=== PATIENT | male | born 1970 | race Caucasian/White ===

== ENCOUNTER 2018-05-06 22:01 | Emergency (ER) | payer MEDICAID, SELFPAY ==
[2018-05-06 22:02] VITALS: BP 121/80; PULSE 89; RESP 16; TEMP 37.2; O2SAT 97; BMI 20.5
[2018-05-06] MEDS: BACITRACIN 15 GM Tube 1 APPLIC TOPICAL (23:19)
--- NOTE | 2018-05-07 00:07 | ED.VISSUMM ---
- ER Visit Summary Date of Service: 05/07/18 Chief Complaint: Forearm laceration History of Present Illness: The patient is a 48 M presenting for evaluation secondary to forearm laceration. Patient states that he cut his right forearm at about 3 PM today on a screw that was sticking out from a board. Patient states that his tetanus status is unknown. Patient denies any other injuries. Physical Examination: Physical exam unremarkable except for examination of the right forearm. There are some abrasions noted over the upper arm, and a 1 cm full-thickness laceration noted over the forearm just distal to the crease of the elbow. Normal sensation pulses capillary refill distally. Test Results: None indicated Emergency Department Course and Treatment: Patient presented secondary to a laceration. Tetanus status was updated. Wound was anesthetized using 3 cc 1% lidocaine. Wound was copiously irrigated with saline, was explored through full range of motion I did not appreciate any sort of foreign bodies. The wound was then approximated using 4-0 nylon suture. 2 simple interrupted sutures were placed patient tolerated this well. Patient will have the sutures removed in 5-7 days. Disposition: Discharge Impression: 1. 1 cm right forearm laceration 2. Tetanus update 3. Laceration repair This note was generated with [employer] dictation software. It may contain incorrect words, spelling, and punctuation that were not noted in review of the chart prior to signing ED Disposition - Plan for ED Patient: Disposition: Home or Assisted Living Chief Complaint: Laceration Diagnosis: Forearm laceration Instructions: ED Laceration All Referrals: Qasim Walter MD [Primary Care Provider] - 7 Days for suture removal
[2018-05-07] MEDS: Diphth,Pertuss(Acell),Tet Vac 0.5 ML Vial IM (00:17)
[2018-05-07 00:27] VITALS: RESP 16
== END 2018-05-07 00:31 | disposition home or self-care (01) ==
PROVIDERS: Emergency Provider Emergency Medicine; Family Provider Family Medicine; PCP Family Medicine
DX: S51.811A Laceration without foreign body of right forearm, initial encounter (principal); W26.8XXA Contact with other sharp object(s), not elsewhere classified, initial encounter; Y93.9 Activity, unspecified; Y92.9 Unspecified place or not applicable
CPT/HCPCS: 12001; 90471; 90715; 99284

== ENCOUNTER 2018-05-26 21:18 | Emergency (ER) | payer MEDICAID, SELFPAY ==
[2018-05-26 21:19] VITALS: BP 114/88; PULSE 60; RESP 17; TEMP 36.5; O2SAT 100; BMI 18.4
--- NOTE | 2018-05-26 21:52 | ED.DCSUM_ITS ---
- ER Visit Summary Date of Service: 05/26/18 Chief Complaint: Headache, nausea, vomiting History of Present Illness: The patient is a 48 M presenting with headache, nausea, vomiting. Started yesterday. Patient works in the heat. He was concerned about possibility of heat exhaustion. He states he has been in the heat all week. He has had gradual onset headache. He has nausea and vomiting. He was unable to keep fluids down today. He denies other complaints. Physical Examination: Vitals are stable. Patient is afebrile. Alert no acute distress. HEENT exam is unremarkable. Neck is supple. No meningismus Lungs are clear and equal bilaterally. Heart is regular rate and rhythm. Abdomen is soft nontender nondistended. Extremities are unremarkable. Skin is warm and dry. No focal neurologic deficit. Remainder of exam is unremarkable. Emergency Department Course and Treatment: He was given IV fluids, Phenergan. Chemistries show BUN 29. CK 238. Patient is feeling much improved on reevaluation. He is able to tolerate p.o. He is advised to drink plenty of fluids when he is in the heat. Advised to follow-up with primary care physician. Advised return to ED for worsening complaints. Disposition: Discharge home Impression: Heat exhaustion This note was generated with [employer] dictation software. It may contain incorrect words, spelling, and punctuation that were not noted in review of the chart prior to signing ED Disposition - Plan for ED Patient: Chief Complaint: Headache Instructions: ED Exhaustion Heat Prescriptions: Ondansetron [Zofran Odt] 4 mg PO Q8H PRN PRN #10 tablet PRN Reason: Nausea Referrals: Qasim Walter MD [Primary Care Provider] -
[2018-05-26] MEDS: proMETHazine 25 MG/ML Syringe 6.25 MG IV (21:57)
[2018-05-26] MEDS: 0.9% Normal Saline 1,000 ML 1000 ML IV ×2 (21:58→22:45)
[2018-05-26 22:22] LABS: Anion Gap 7 (5-15); BUN 29 mg/dL (7-18); BUN/Creat Ratio 27.9 RATIO (10-20); CPK Total, Creatine Kinase 238 U/L (39-308); Calcium,Total 8.9 mg/dL (8.5-10.1); Chloride 108 mmol/L (98-107); Creatinine, Serum 1.04 mg/dL (0.70-1.30); EST Glomerular Filtration Rate 81 mL/min (>60); Est Glom Filt Rate - Afr Amer 98 mL/min (>60); Estimated Creatinine Clearance 68.31 ml/min; Glucose 101 mg/dL (74-106); Potassium 3.8 mmol/L (3.5-5.1); Sodium Level 144 mmol/L (136-145)
--- NOTE | 2018-05-26 22:54 | ED.DEP ---
ED Disposition - Plan for ED Patient: Chief Complaint: Headache Instructions: ED Exhaustion Heat Prescriptions: Ondansetron [Zofran Odt] 4 mg PO Q8H PRN PRN #10 tablet PRN Reason: Nausea Referrals: Qasim Walter MD [Primary Care Provider] -
[2018-05-26 23:17] VITALS: BP 136/76; PULSE 80; RESP 16; O2SAT 98
== END 2018-05-26 23:20 | disposition home or self-care (01) ==
LOC: ED 21:35
PROVIDERS: Emergency Provider Emergency Medicine; Family Provider Family Medicine; PCP Family Medicine
DX: T67.5XXA Heat exhaustion, unspecified, initial encounter (principal); X32.XXXA Exposure to sunlight, initial encounter; Y93.89 Activity, other specified; Y92.9 Unspecified place or not applicable; Z72.0 Tobacco use
CPT/HCPCS: 80048; 82550; 96361; 96374; 99283; J7030; A4216

== ENCOUNTER → 2025-03-04 | Outpatient (CLI) | payer MEDICAID, SELFPAY ==
--- NOTE | 2025-03-04 10:15 | RAD_ITS ---
EXAM: XR Lumbosacral Spine, 2 or 3 Views CLINICAL INDICATION: LUMBAR SPRAIN TECHNIQUE: Frontal and lateral views of the lumbar spine and sacrum. COMPARISON: No relevant prior studies available. FINDINGS: VERTEBRAE: Mild multilevel endplate degenerative changes of L2 through S1. Mild facet arthropathy of L3-S1. No acute fracture. Normal alignment. SACRUM/COCCYX: Unremarkable as visualized. No acute fracture. DISC SPACES: No acute findings. No significant narrowing. SOFT TISSUES: Unremarkable. RAD/Lumbar Spine 2 or 3 Views IMPRESSION: Degenerative changes as above. [facility]
--- NOTE | 2025-03-04 10:15 | RAD_ITS ---
PROCEDURE: Pelvis and right hip radiographs, three views 03/04/2025 REASON FOR EXAM: RIGHT HIP STRAIN TECHNIQUE: Three views of the pelvis/right hip were obtained. COMPARISON: None available FINDINGS: Three views of the pelvis and right hip were obtained. Mild osteopenia. Mild degenerative changes lower lumbar spine. SI joints are intact. No displaced pelvic or proximal femur fracture. [id number] degenerative changes in the hip joints. No acute fracture or dislocation right hip. RAD/HIP, UNI W/ Pelvis 2-3 Views IMPRESSION: Osteopenia. No acute bony abnormality of the pelvis/right hip. [id number] degenerative changes in the hip joints. Reading Location: [facility]
== END | disposition home or self-care (01) ==
LOC: RAD 09:54
PROVIDERS: PCP Family Medicine; Referring Provider Chiropractor; Visit Provider Chiropractor
DX: S33.5XXA Sprain of ligaments of lumbar spine, initial encounter (principal); S73.191A Other sprain of right hip, initial encounter
CPT/HCPCS: 72100; 73502